=== PATIENT | male | born 1975 | race Two or more races ===

== ENCOUNTER 2019-03-12 17:46 | Emergency (ER) | payer OTHER ==
[~2019-03-12] VITALS: Ht 177.8 cm; Wt 114.3 kg
[~2019-03-12 17:46] MED LIST: FIORICET 50-301 EACH PO
== END 2019-03-12 21:37 | disposition home or self-care (01) ==
LOC: ER 17:46
DX: G89.11 Acute pain due to trauma (principal); M25.562 Pain in left knee; M25.572 Pain in left ankle and joints of left foot